=== PATIENT | female | born 1975 | race Caucasian/White ===

== ENCOUNTER 2016-11-03 14:09 | Emergency (ER) | payer OTHER ==
[~2016-11-03] VITALS: Ht 165.1 cm; Wt 145.2 kg
[2016-11-03] MEDS ORDERED: LAMICTAL200 MG PO (14:27)
[2016-11-03] MEDS ORDERED: MULTIVITAMINS1 EAC7 PO (14:28)
== END 2016-11-03 16:17 | disposition home or self-care (01) ==
LOC: ED 14:09
DX: G43.909 Migraine, unspecified, not intractable, without status migrainosus (principal); Z88.5 Allergy status to narcotic agent; Z88.8 Allergy status to other drugs, medicaments and biological substances; Z79.899 Other long term (current) drug therapy
CPT/HCPCS: 70450; 80053; 85025; 96374; 96375; 99284; J1200; J1885; J2765